=== PATIENT | male | born 1990 | race American Indian/Alaskan Native ===

== ENCOUNTER 2017-04-20 11:22 | Emergency (ER) | payer OTHER ==
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
[2017-04-20] MEDS ORDERED: MOTRIN PO ONE (14:49)
[2017-04-20 15:04] VITALS: BP 140/88
== END 2017-04-20 14:58 | disposition home or self-care (01) ==
LOC: ED 11:22
DX: S46.911A Strain of unspecified muscle, fascia and tendon at shoulder and upper arm level, right arm, initial encounter (principal); V89.2XXA Person injured in unspecified motor-vehicle accident, traffic, initial encounter; Y93.89 Activity, other specified; Y92.89 Other specified places as the place of occurrence of the external cause; Y99.8 Other external cause status
CPT/HCPCS: 99283